=== PATIENT | male | born 1990 | race Asian ===

== ENCOUNTER → 2017-04-28 | Outpatient (CLI) | payer BC ==
--- NOTE | 2017-04-28 09:36 | DIAGNOSTIC IMAGING REPORT ---
LEFT FOREARM ULTRASOUND CLINICAL HISTORY: LUMP ON FOREARM, LEFT COMPARISON STUDY: None. FINDINGS: Within the subcutaneous fat of the left forearm at the patient's question palpable abnormality there is a 1.9 x 1.6 x 0.5 cm circumscribed oval-shaped slightly hyperechoic structure. This is adjacent to the basilic vein. The appearance favors a lipoma. No fluid collections identified IMPRESSION: A 1.9 x 1.6 x 0.5 cm slightly hyperechoic oval-shaped structure within the subcutaneous fat of the left forearm. This favors a lipoma. Surgical excision could be performed if this is increasing in size or is painful. Electronically signed by: Vladimir Hung M.D. 04/28/2017 9:35 AM Dictated Date/Time: 04/28/2017 9:33 AM
== END | disposition home or self-care (01) ==
LOC: C.ULTR 09:11
PROVIDERS: ATTEND Nurse Practitioner Family
DX: R22.30 Localized swelling, mass and lump, unspecified upper limb (principal)